=== PATIENT | male | born 1965 | race Caucasian/White ===

== ENCOUNTER → 2021-01-01 | Outpatient (CLI) | payer BC ==
[~2021-01-01] MED LIST: ERYTHROMYCIN O3.5 GM EYELF; IBUPROFEN600 MG PO
== END ==
LOC: EXRD 15:43
DX: R13.10 Dysphagia, unspecified (principal)
CPT/HCPCS: 76536

== ENCOUNTER → 2021-03-19 | Outpatient (CLI) | payer BC | LOC: EXRD 13:40 | DX: R93.89 Abnormal findings on diagnostic imaging of other specified body structures (principal); E04.1 Nontoxic single thyroid nodule | CPT/HCPCS: 76536 ==

== ENCOUNTER → 2021-04-23 | Outpatient (CLI) | payer MEDICARE | LOC: US 09:08 | DX: E07.89 Other specified disorders of thyroid (principal) ==